=== PATIENT | male | born 2000 | race Caucasian/White ===

== ENCOUNTER 2020-10-20 02:13 | Emergency (ER) | payer OTHER ==
[~2020-10-20] VITALS: Ht 175.3 cm; Wt 65.9 kg
[2020-10-20 02:17] VITALS: BP 127/86
--- NOTE | 2020-10-20 04:23 | NUR ---
PIT, PT DISCHARGED FROM TRIAGE
== END 2020-10-20 04:25 | disposition home or self-care (01) ==
LOC: ED 04:06
DX: S00.83XA Contusion of other part of head, initial encounter (principal); S60.222A Contusion of left hand, initial encounter; X58.XXXA Exposure to other specified factors, initial encounter; Y93.89 Activity, other specified; Y92.410 Unspecified street and highway as the place of occurrence of the external cause; Y99.8 Other external cause status
CPT/HCPCS: 70450; 70486; 99285

== ENCOUNTER 2020-10-20 09:45 | Emergency (ER) | payer OTHER ==
[~2020-10-20] VITALS: Ht 175.3 cm; Wt 63.0 kg
[2020-10-20 10:04] VITALS: BP 125/85
== END 2020-10-20 10:55 | disposition home or self-care (01) ==
LOC: ED 10:49
DX: S60.415A Abrasion of left ring finger, initial encounter (principal); X58.XXXA Exposure to other specified factors, initial encounter; Y93.89 Activity, other specified; Y92.410 Unspecified street and highway as the place of occurrence of the external cause; Y99.8 Other external cause status
CPT/HCPCS: 99281